=== PATIENT | male | born 1995 | race Caucasian/White ===

== ENCOUNTER 2021-06-25 14:44 | Observation (INO) | payer BC ==
[2021-06-25 15:17] LABS: Appearance CLOUDY (CLEAR); Bacteria RARE /HPF (NEGATIVE); Bilirubin NEGATIVE (NEGATIVE); Blood SMALL Ery/ul (0-5); Glucose NEGATIVE (NEGATIVE); Hyaline Casts 0-2 /LPF (0-2); Ketones SMALL (NEGATIVE); Leukocyte Esterase NEGATIVE (NEGATIVE); Mucus MODERATE /HPF (NEGATIVE); Nitrite NEGATIVE (NEGATIVE); Protein,Urine Dip 100 (Negative); Specific Gravity 1.016 (1.005-1.025); Sperm PRESENT /HPF (NEGATIVE); Urobilinogen NEGATIVE mg/dL (0-1); WBC 0-2 /HPF (0-5)
[2021-06-25 15:20] LABS: Absolute Neutrophil Ct (ANC) 10.67 (1.4-6.9); Basophil (Absolute #) 0.03 (0-0.4); Eosinophil % 0.5 % (0.00-5.0); Eosinophil (Absolute #) 0.06 (0-0.5); Hemoglobin 16.1 gm/dl (12.5-18.0); Lymphocyte (Absolute #) 0.59 (1.0-4.6); Mean Corpuscular Hemoglobin 30.1 pg (26-32); Mean Corpuscular Hgb Concent. 34.3 g/dl (32-36); Mean Platelet Volume 10.2 fl (7.5-11.0); Monocyte (Absolute #) 0.47 (0.0-1.3); Neutrophil % 90.2 % (36.0-66.0); Platelet Count 280 K/mm3 (150-450); Red Blood Count 5.34 M/mm3 (4.1-5.6); Red Cell Distribution Width 12.8 % (11.5-14.0); White Blood Count 11.8 K/mm3 (4.0-10.5)
[2021-06-25 15:28] LABS: ACETAMINOPHEN < 10 ug/ml (10-30); ALBUMIN 4.8 g/dL (3.5-5.0); ALKALINE PHOSPHATASE 98 U/L (38-126); ANION GAP 12.3 MEQ/L (5-15); BLOOD UREA NITROGEN 6 mg/dL (9-20); CHLORIDE 102 mmol/L (98-107); Calcium 9.6 mg/dL (8.4-10.2); Carbon Dioxide 28 mmol/L (22-30); Creatinine 1 0.71 mg/dL (0.66-1.25); EST GLOMERULAR FILTRATION RATE > 60.0 ML/MIN; ETHYL ALCOHOL < 10 mg/dL (0-10); Glucose 151 mg/dL (74-106); Potassium 4.2 mmol/L (3.5-5.1); SALICYLATE < 1.0 mg/dL (2-20); SGOT/AST 30 U/L (17-59); SGPT/ALT 26 U/L (0-50); SODIUM 138 mmol/L (137-145); Total Protein 7.7 g/dL (6.3-8.2)
[2021-06-25 15:37] LABS: Amphetamine,Urine NEGATIVE (NEGATIVE); Barbiturate,Urine NEGATIVE (NEGATIVE); Benzodiazepine,Urine NEGATIVE (NEGATIVE); Cocaine,Urine NEGATIVE (NEGATIVE); Methadone,Urine NEGATIVE (NEGATIVE); Opiate,Urine NEGATIVE (NEGATIVE); PCP,Urine NEGATIVE (NEGATIVE); THC,Urine POSITIVE (NEGATIVE)
--- NOTE | 2021-06-25 15:47 | ERPHSYRPT ---
- History of Present Illness Time Seen by Provider: 06/25/21 15:44 Source: patient, EMS, police Exam Limitations: no limitations Patient Subjective Stated Complaint: Overdose Triage Nursing Assessment: Patient brought into ED via EMS and transferred to bed per self. Patient alert to self and place, but unknown to date and time. Patient states the year is 2006 and unknown who is president. EMS states patient had went outside fine and came back inside stumbling around and not making any sense with speech. Patient has hx of substance abuse, but denies taking any drugs. Patient denies pain or discomfort. Patient denies suicidal or homicidal ideation. Patient has raised area to forehead. Patient also very tired. Physician History: EMS states patient had went outside fine and came back inside stumbling around and not making any sense with speech. Patient has hx of substance abuse, but denies taking any drugs. Patient denies pain or discomfort. Patient denies suicidal or homicidal ideation. Patient has raised area to forehead. Patient also very tired. Patient alert to self and place, but unknown to date and time. Patient states the year is 2006 and unknown who is president. Timing/Duration: today Severity of Symptoms-Max: mild Severity of Symptoms-Current: mild Associated Symptoms: denies symptoms Previous symptoms: no prior history Allergies/Adverse Reactions: No Known Drug Allergies Allergy (Verified 06/25/21 14:48) Home Medications: clonazePAM [Klonopin] 1 tab PO BID PRN PRN 06/25/21 [History] Hx Tetanus, Diphtheria Vaccination/Date Given: Yes Hx Influenza Vaccination/Date Given: No Hx Pneumococcal Vaccination/Date Given: No Immunizations Up to Date: Yes Travel Risk - International Travel Have you traveled outside of the country in past 3 weeks: No - Coronavirus Screening Are you exhibiting any of the following symptoms?: No Close contact with a COVID-19 positive Pt in past 14-21 Days: No - Vaccine Status Have you recieved a Covid-19 vaccination: Yes Synthetic Department Supervisor: Mercari - Vaccination Dates Date of 2cond Vaccination (if applicable): unknown - Past Medical History Pertinent Past Medical History: Yes Neurological History: No Pertinent History ENT History: No Pertinent History Cardiac History: No Pertinent History Respiratory History: No Pertinent History Endocrine Medical History: No Pertinent History Musculoskeletal History: Fractures GI Medical History: No Pertinent History History: No Pertinent History Psycho-Social History: No Pertinent History Male Reproductive Disorders: No Pertinent History Other Medical History: seasonal allergies - Past Surgical History Past Surgical History: Yes Neuro Surgical History: No Pertinent History Cardiac: No Pertinent History Respiratory: No Pertinent History Gastrointestinal: No Pertinent History Genitourinary: No Pertinent History Musculoskeletal: Orthopedic Surgery Male Surgical History: No Pertinent History Other Surgical History: left arm fracture with repair. revision to fracture repair and eventual removal or hardware - Social History Smoking Status: Never smoker Exposure to second hand smoke: No Drug Use: none Patient Lives Alone: No - Review of Systems Constitutional: No Fever, No Chills Eyes: No Symptoms Ears, Nose, & Throat: No Symptoms Respiratory: No Cough, No Dyspnea Cardiac: No Chest Pain, No Edema, No Syncope Abdominal/Gastrointestinal: No Abdominal Pain, No Nausea, No Vomiting, No Diarrhea Genitourinary Symptoms: No Dysuria Musculoskeletal: No Back Pain, No Neck Pain Skin: No Rash Neurological: No Dizziness, No Focal Weakness, No Sensory Changes Psychological: No Symptoms Endocrine: No Symptoms All Other Systems: Reviewed and Negative - Nursing Vital Signs Nursing Vital Signs: Initial Vital Signs Temperature 97 F 06/25/21 14:51 Pulse Rate 61 06/25/21 14:51 Respiratory Rate 18 06/25/21 14:51 Blood Pressure 118/63 06/25/21 14:51 O2 Sat by Pulse Oximetry 99 06/25/21 14:51 Pain Scale Pain Intensity 0 - Physical Exam General Appearance: no apparent distress Eyes, Ears, Nose, Throat Exam: normal ENT inspection, moist mucous membranes, other (bruise on left side forehead) Neck Exam: normal inspection, non-tender, supple Respiratory Exam: normal breath sounds, lungs clear, No respiratory distress Cardiovascular Exam: regular rate/rhythm, No edema Gastrointestinal/Abdominal Exam: soft, No tenderness, No distention Extremities Exam: normal inspection, normal range of motion, No evidence of injury, No edema Current Suicidality: denies suicide plan Neurological Exam: alert, customer success manager II-XII nml as tested, oriented x 3 Skin Exam: normal color, warm, dry, No rash SpO2: 99 - Course Nursing assessment & vital signs reviewed: Yes EKG Interpreted by Me: Sinus Jose Daniel (contusion left forehead) - CT Exams Head CT Interpretation: Tele-radiologist Report Ordered Tests: Active Orders 24 hr Category Date Time Status HEAD WITHOUT CONTRAST [CT] Stat Exams 06/25/21 15:03 Taken ACETAMINOPHEN Stat Lab 06/25/21 15:14 Completed CBC W DIFF Stat Lab 06/25/21 15:14 Completed CMP Stat Lab 06/25/21 15:14 Completed ETHYL ALCOHOL Stat Lab 06/25/21 15:14 Completed SALICYLATE Stat Lab 06/25/21 15:14 Completed UA W/RFX UR CULTURE Stat Lab 06/25/21 15:06 Completed Urine Triage Profile Stat Lab 06/25/21 15:06 Completed Medication Summary Discontinued Medications Generic Name Dose Route Start Last Admin Trade Name Dylan PRN Reason Stop Dose Admin Sodium Chloride 1,000 mls @ 999 mls/hr 06/25/21 15:57 06/25/21 16:00 Sodium Chloride 0.9% 1000 Ml IV 06/25/21 16:57 999 mls/hr .Q1H1M STA Administration Sodium Chloride Confirm 06/25/21 15:59 Sodium Chloride 0.9% 1000 Ml Administered 06/25/21 16:00 Dose 1,000 mls @ ud .ROUTE .STK-MED ONE Sodium Chloride 1,000 mls @ 999 mls/hr 06/25/21 16:11 06/25/21 17:19 Sodium Chloride 0.9% 1000 Ml IV 06/25/21 17:11 999 mls/hr .Q1H1M STA Administration Sodium Chloride Confirm 06/25/21 17:13 Sodium Chloride 0.9% 1000 Ml Administered 06/25/21 17:14 Dose 1,000 mls @ ud .ROUTE .STK-MED ONE Metoclopramide HCl 10 mg 06/25/21 17:07 06/25/21 17:19 Metoclopramide Hcl 10 Mg/2 Ml Vial IV 06/25/21 17:08 10 mg STAT ONE Administration Metoclopramide HCl Confirm 06/25/21 17:12 Metoclopramide Hcl 10 Mg/2 Ml Vial Administered 06/25/21 17:13 Dose 10 mg .ROUTE .STK-MED ONE Ondansetron HCl Confirm 06/25/21 15:51 Ondansetron Hcl 4 Mg/2 Ml Vial Administered 06/25/21 15:52 Dose 4 mg .ROUTE .STK-MED ONE Ondansetron HCl 4 mg 06/25/21 15:57 06/25/21 16:00 Ondansetron Hcl 4 Mg/2 Ml Vial IV 06/25/21 15:58 4 mg STAT ONE Administration Ondansetron HCl 4 mg 06/25/21 16:46 06/25/21 16:52 Ondansetron Hcl 4 Mg/2 Ml Vial IV 06/25/21 16:47 4 mg STAT ONE Administration Ondansetron HCl Confirm 06/25/21 16:48 Ondansetron Hcl 4 Mg/2 Ml Vial Administered 06/25/21 16:49 Dose 4 mg .ROUTE .[facility]rase[facility]rug[facility] ONE Prochlorperazine Edisylate 5 mg 06/25/21 17:07 06/25/21 17:18 Prochlorperazine Edisylate 10 Mg/2 Ml Vial IV 06/25/21 17:08 5 mg STAT ONE Administration Prochlorperazine Edisylate Confirm 06/25/21 17:12 Prochlorperazine Edisylate 10 Mg/2 Ml Vial Administered 06/25/21 17:13 Dose 10 mg .ROUTE .[employer]rug[facility] ONE Lab/Rad Data: Laboratory Result Diagrams 06/25/21 15:14 06/25/21 15:14 Laboratory Results 06/25/21 06/25/21 06/25/21 Range/Units 15:14 15:14 15:06 WBC 11.8 H (4.0-10.5) K/mm3 RBC 5.34 (4.1-5.6) M/mm3 Hgb 16.1 (12.5-18.0) gm/dl Hct 47.0 (42-50) % MCV 88.0 (78-100) fl MCH 30.1 (26-32) pg MCHC 34.3 (32-36) g/dl RDW 12.8 (11.5-14.0) % Plt Count 280 (150-450) K/mm3 MPV 10.2 (7.5-11.0) fl Gran % 90.2 H (36.0-66.0) % Eos # (Auto) 0.06 (0-0.5) Absolute Lymphs (auto) 0.59 L (1.0-4.6) Absolute Monos (auto) 0.47 (0.0-1.3) Lymphocytes % 5.0 L (24.0-44.0) % Monocytes % 4.0 (0.0-12.0) % Eosinophils % 0.5 (0.00-5.0) % Basophils % 0.3 (0.0-0.4) % Absolute Granulocytes 10.67 H (1.4-6.9) Basophils # 0.03 (0-0.4) Sodium 138 (137-145) mmol/L Potassium 4.2 (3.5-5.1) mmol/L Chloride 102 (98-107) mmol/L Carbon Dioxide 28 (22-30) mmol/L Anion Gap 12.3 (5-15) MEQ/L BUN 6 L (9-20) mg/dL Creatinine 0.71 (0.66-1.25) mg/dL Estimated GFR > 60.0 ML/MIN Glucose 151 H (74-106) mg/dL Calcium 9.6 (8.4-10.2) mg/dL Total Bilirubin 0.70 (0.2-1.3) mg/dL AST 30 (17-59) U/L ALT 26 (0-50) U/L Alkaline Phosphatase 98 (38-126) U/L Serum Total Protein 7.7 (6.3-8.2) g/dL Albumin 4.8 (3.5-5.0) g/dL Urine Color (YELLOW) Urine Appearance (CLEAR) Urine pH (5-6) Ur Specific [place] (1.005-1.025) Urine Protein (Negative) Urine Ketones (NEGATIVE) Urine Blood (0-5) Joradn/ul Urine Nitrite (NEGATIVE) Urine Bilirubin (NEGATIVE) Urine Urobilinogen (0-1) mg/dL Ur Leukocyte Esterase (NEGATIVE) Urine WBC (Auto) (0-5) /HPF Urine RBC (Auto) (0-2) /HPF U Hyaline Cast (Auto) (0-2) /LPF U Epithel Cells (Auto) (FEW) /HPF Urine Bacteria (Auto) (NEGATIVE) /HPF Urine Mucus (Auto) (NEGATIVE) /HPF Urine Sperm (Auto) (NEGATIVE) /HPF Urine Culture Reflexed (NO) Urine Glucose (NEGATIVE) mg/dL Salicylates < 1.0 L (2-20) mg/dL Urine Opiates Level NEGATIVE (NEGATIVE) Ur Methadone NEGATIVE (NEGATIVE) Acetaminophen < 10 L (10-30) ug/ml Urine Barbiturates NEGATIVE (NEGATIVE) Ur Phencyclidine (PCP) NEGATIVE (NEGATIVE) Urine Amphetamine NEGATIVE (NEGATIVE) U Benzodiazepine Level NEGATIVE (NEGATIVE) Urine Cocaine NEGATIVE (NEGATIVE) Urine Marijuana (THC) POSITIVE (NEGATIVE) Ethyl Alcohol < 10 (0-10) mg/dL Slides for Path Review YES 06/25/21 Range/Units 15:06 WBC (4.0-10.5) K/mm3 RBC (4.1-5.6) M/mm3 Hgb (12.5-18.0) gm/dl Hct (42-50) % MCV (78-100) fl MCH (26-32) pg MCHC (32-36) g/dl RDW (11.5-14.0) % Plt Count (150-450) K/mm3 MPV (7.5-11.0) fl Gran % (36.0-66.0) % Eos # (Auto) (0-0.5) Absolute Lymphs (auto) (1.0-4.6) Absolute Monos (auto) (0.0-1.3) Lymphocytes % (24.0-44.0) % Monocytes % (0.0-12.0) % Eosinophils % (0.00-5.0) % Basophils % (0.0-0.4) % Absolute Granulocytes (1.4-6.9) Basophils # (0-0.4) Sodium (137-145) mmol/L Potassium (3.5-5.1) mmol/L Chloride (98-107) mmol/L Carbon Dioxide (22-30) mmol/L Anion Gap (5-15) MEQ/L BUN (9-20) mg/dL Creatinine (0.66-1.25) mg/dL Estimated GFR ML/MIN Glucose (74-106) mg/dL Calcium (8.4-10.2) mg/dL Total Bilirubin (0.2-1.3) mg/dL AST (17-59) U/L ALT (0-50) U/L Alkaline Phosphatase (38-126) U/L Serum Total Protein (6.3-8.2) g/dL Albumin (3.5-5.0) g/dL Urine Color YELLOW (YELLOW) Urine Appearance CLOUDY (CLEAR) Urine pH 6.0 (5-6) Ur Specific [place] 1.016 (1.005-1.025) Urine Protein 100 (Negative) Urine Ketones SMALL (NEGATIVE) Urine Blood SMALL (0-5) Jordan/ul Urine Nitrite NEGATIVE (NEGATIVE) Urine Bilirubin NEGATIVE (NEGATIVE) Urine Urobilinogen NEGATIVE (0-1) mg/dL Ur Leukocyte Esterase NEGATIVE (NEGATIVE) Urine WBC (Auto) 0-2 (0-5) /HPF Urine RBC (Auto) 3-5 (0-2) /HPF U Hyaline Cast (Auto) 0-2 (0-2) /LPF U Epithel Cells (Auto) NONE (FEW) /HPF Urine Bacteria (Auto) RARE (NEGATIVE) /HPF Urine Mucus (Auto) MODERATE (NEGATIVE) /HPF Urine Sperm (Auto) PRESENT (NEGATIVE) /HPF Urine Culture Reflexed NO (NO) Urine Glucose NEGATIVE (NEGATIVE) mg/dL Salicylates (2-20) mg/dL Urine Opiates Level (NEGATIVE) Ur Methadone (NEGATIVE) Acetaminophen (10-30) ug/ml Urine Barbiturates (NEGATIVE) Ur Phencyclidine (PCP) (NEGATIVE) Urine Amphetamine (NEGATIVE) U Benzodiazepine Level (NEGATIVE) Urine Cocaine (NEGATIVE) Urine Marijuana (THC) (NEGATIVE) Ethyl Alcohol (0-10) mg/dL Slides for Path Review - Progress Progress: improved Counseled pt/family regarding: drug and/or alcohol abuse, lab results, diagnosis, need for follow-up, rad results, smoking cessation - Departure Departure Disposition: Observation Clinical Impression: Concussion Qualifiers: Encounter type: initial encounter Loss of consciousness presence/duration: without LOC Qualified Code(s): S06.0X0A - Concussion without loss of consciousness, initial encounter Head injury due to trauma Qualifiers: Encounter type: initial encounter Qualified Code(s): S09.90XA - Unspecified injury of head, initial encounter Condition: Fair Critical Care Time: Yes Critical Care Time(excluding separately billable procedures): Critical 30-74 mins Referrals: ONEIL SOTO [ACTIVE STAFF] - Follow Up with PCP/3 days Instructions: Concussion in Adults, Postconcussion Syndrome, Marijuana, Minor Head Injury (DC) Additional Instructions: Discharge/Care Plan ANTHONY GONG was seen on 06/25/21 in the Emergency Room. The patient was counseled regarding Diagnosis,Lab results, Imaging studies, need for follow up and when to return to the Emergency Room. Prescriptions given: Discharge Note I have spoken with the patient and/or caregivers. I have explained the patient's condition, diagnosis and treatment plan based on the information available to me at this time. I have answered the patient's and/or caregiver's questions and addressed any concerns. The patient and/or caregivers have as good understanding of the patient's diagnosis, condition and treatment plan as can be expected at this point. The vital signs have been stable. The patient's condition is stable and appropriate for discharge from the emergency department. The patient will pursue further outpatient evaluation with the primary care physician or other designated or consulting physician as outlined in the discharge instructions. The patient and/or caregivers are agreeable to this plan of care and follow-up instructions have been explained in detail. The patient and/or caregivers have received these instruction. The patient/and or caregivers are aware that any significant change in condition or worsening of symptoms should prompt an immediate return to this or the closest emergency department or call 911. ANTHONY GONG was seen on 06/25/21 n the Emergency Room. At that time you were treated for an emergent condition, during your visit Laboratory, Radiology and/or other procedures may have been ordered. It is very important that you follow-up with your Primary Care Physician TIMMY KUMAR within the next 24-48 hours to review your Emergency Room visit and the final results of testing that was ordered. Some test results such as Urine Cultures, Blood Cultures, and other cultures if ordered will not be finalized for 24-48 hours. If you do not have a Primary Care Provider please call the medical records department at [phone] to obtain a copy of your results or you may sign into our patient portal to obtain these results by visiting us @ [email or web address] and completing the following steps: 1. Click on the Patient Portal link 2. Click the Patient Self Enrollment Link to complete the enrollment form and entering your 3. Once the enrollment form is completed you will receive an email with a temporary ID and password at the email address you provided. 4. Next choose a user name and password. Your user name must be at least 4 characters long and your password must be at least 4 characters long. 5. Choose a security question from the list and provide your answer to the question. If you already have signed into the Health Portal you may access your Health Care Information 14/01 by the following steps: 1. Login to our website @ [email or web address] 2. Enter your original user name and password. FAQS [facility] Health Portal is an online tool that contains your Lab Results, Radiology Reports, Visit History, Discharge Instructions and Health Summary Lab and Radiology Results will not be available for 72 hours on the portal. The Portal is a secure site, passwords are encryted and URLs are re-written so they cannot be copied and pasted. You and authorized family members are the only ones who can access your Portal. Also there is a timeout feature that protects your information if you leave the Portal page open. If you have technical difficulty please use the Contact Us link on the page this will allow you to submit any questions you have regarding the Portal or you may contact the Medical Record Department at [phone]. Prescriptions: Ondansetron ODT 4 MG [Zofran Odt 4 mg] 4 mg PO Q6H PRN PRN #20 tablet PRN Reason: Nausea
[2021-06-25 15:49] LABS: Slide Review 1 YES
[2021-06-25] MEDS ORDERED: Zofran 4 MG/2 ML VIAL ONE ×2 (15:51→16:48)
[2021-06-25] MEDS ORDERED: Sodium Chloride 0.9% 1000 ML 1,000 ML IV STA ×2 (15:57→16:11)
[2021-06-25] MEDS ORDERED: Zofran 4 MG/2 ML VIAL IV ONE ×2 (15:57→16:46)
[2021-06-25] MEDS ORDERED: Sodium Chloride 0.9% 1000 ML 1,000 ML ONE ×2 (15:59→17:13)
[2021-06-25] MEDS ORDERED: Reglan 10 MG/2 ML IV ONE (17:07)
[2021-06-25] MEDS ORDERED: Compazine 10 MG/2 ML IV ONE (17:07)
[2021-06-25] MEDS ORDERED: Compazine 10 MG/2 ML ONE (17:12)
[2021-06-25] MEDS ORDERED: Reglan 10 MG/2 ML ONE (17:12)
[2021-06-25 18:12] LABS: INFLUENZA A NEGATIVE (NEGATIVE); INFLUENZA B NEGATIVE (NEGATIVE); RESPIRATORY SYNCTIAL VIRUS NEGATIVE (Negative); SARS-CoV-2 Xpert Express NEGATIVE (NEGATIVE)
[2021-06-25] MEDS ORDERED: TYLENOL 325 MG PO PRN (18:33)
[2021-06-25] MEDS ORDERED: Zofran 4 MG/2 ML VIAL IV PRN (18:33)
--- NOTE | 2021-06-25 19:38 | XRAY ---
Indication: Syncope. Confusion. Overdose. Multiple contiguous axial images obtained through the head without contrast. Comparison: None. Normal appearing brain parenchyma, ventricles, and bony calvarium. Visualized paranasal sinuses and mastoid air cells are clear. Impression: Normal CT head without contrast exam. Comment: Preliminary interpretation made by [facility]. No critical discrepancy.
[2021-06-25] MEDS: Pepcid 20 MG VIAL IV SCH (21:49)
[2021-06-25] MEDS: Dextrose 5%-Lr IV Solution 1000 ML 1,000 ML IV SCH (21:49)
[2021-06-26 05:05] LABS: Absolute Neutrophil Ct (ANC) 9.83 (1.4-6.9); Basophil (Absolute #) 0.01 (0-0.4); Eosinophil (Absolute #) 0 (0-0.5); Hematocrit 41.4 % (42-50); Hemoglobin 14.1 gm/dl (12.5-18.0); Lymphocyte (Absolute #) 0.54 (1.0-4.6); Lymphocytes % 4.9 % (24.0-44.0); Mean Cell Volume 88.3 fl (78-100); Mean Corpuscular Hemoglobin 30.1 pg (26-32); Mean Corpuscular Hgb Concent. 34.1 g/dl (32-36); Mean Platelet Volume 10.7 fl (7.5-11.0); Monocyte (Absolute #) 0.58 (0.0-1.3); Monocytes % 5.3 % (0.0-12.0); Neutrophil % 89.7 % (36.0-66.0); Platelet Count 270 K/mm3 (150-450); Red Blood Count 4.69 M/mm3 (4.1-5.6); Red Cell Distribution Width 12.8 % (11.5-14.0)
[2021-06-26 05:24] LABS: ANION GAP 13.8 MEQ/L (5-15); BLOOD UREA NITROGEN 5 mg/dL (9-20); CHLORIDE 101 mmol/L (98-107); Calcium 8.7 mg/dL (8.4-10.2); Carbon Dioxide 24 mmol/L (22-30); Creatinine 1 0.61 mg/dL (0.66-1.25); EST GLOMERULAR FILTRATION RATE > 60.0 ML/MIN; Glucose 115 mg/dL (74-106); Potassium 3.7 mmol/L (3.5-5.1); SODIUM 135 mmol/L (137-145)
[2021-06-26 06:49] LABS: Slide Review 1 YES
[2021-06-26] MEDS: Pepcid 20 MG VIAL IV SCH ×2 (08:55→20:20)
[2021-06-26] MEDS ORDERED: ZOFRAN ODT 4 MG PO PRN (12:23)
[2021-06-26] MEDS: PRISTIQ ER PO SCH (12:47)
[2021-06-26] MEDS: Dextrose 5%-Lr IV Solution 1000 ML 1,000 ML IV SCH (18:18)
--- NOTE | 2021-06-26 18:55 | PCM.HP ---
History of Present Illness - Chief Complaint Chief Complaint: head injury and confusion for 2-3 hours History of Present Illness: is a 25 year old male EMS states patient had went outside fine and came back inside stumbling around and not making any sense with speech. Patient has hx of substance abuse, but denies taking any drugs. Patient denies pain or discomfort. Patient denies suicidal or homicidal ideation. Patient has raised area to forehead. Patient also very tired. Patient alert to self and place, but unknown to date and time. Patient states the year is 2006 and unknown who is president. Timing/Duration: today Severity of Symptoms-Max: mild Severity of Symptoms-Current: mild Associated Symptoms: denies symptoms Previous symptoms: no prior history. Patient brought into ED via EMS and transferred to bed per self. Patient alert to self and place, but unknown to date and time. Patient states the year is 2006 and unknown who is president. EMS states patient had went outside fine and came back inside stumbling around and not making any sense with speech. Patient has hx of substance abuse, but denies taking any drugs. Patient denies pain or discomfort. Patient denies suicidal or homicidal ideation. Patient has raised area to forehead. Patient also very tired. - Review of Systems Constitutional: Lethargy, No Fever, No Chills Eyes: No Symptoms Ears, Nose, & Throat: No Symptoms Respiratory: No Cough, No Short Of Breath Cardiac: No Chest Pain, No Edema, No Syncope Abdominal/Gastrointestinal: No Abdominal Pain, No Nausea, No Vomiting, No Diarrhea Genitourinary Symptoms: No Dysuria Musculoskeletal: No Back Pain, No Neck Pain Skin: No Rash Neurological: Dizziness, Headache, Lethargy, No Focal Weakness, No Sensory Changes Psychological: No Symptoms Endocrine: No Symptoms Hematologic/Lymphatic: No Symptoms Immunological/Allergic: No Symptoms Medications & Allergies Home Medications: Home Medication List Desvenlafaxine [Desvenlafaxine ER] 50 mg PO DAILY 06/25/21 [History Confirmed 06/25/21] Ondansetron ODT 4 MG [Zofran Odt 4 mg] 4 mg PO Q6H PRN PRN #20 tablet 06/25/21 [Rx] Aripiprazole 10 mg [Abilify 10 MG] 5 mg PO HS #21 tablet 06/26/21 [Rx] Allergies/Adverse Reactions: Allergies Allergy/AdvReac Type Severity Reaction Status Date / Time No Known Drug Allergies Allergy Verified 06/25/21 14:48 - Past Medical History Past Medical History: Yes Neurological History: No Pertinent History ENT History: No Pertinent History Cardiac History: No Pertinent History Respiratory History: No Pertinent History Endocrine Medical History: No Pertinent History Musculoskelatal History: No Pertinent History GI Medical History: No Pertinent History History: No Pertinent History Pyscho-Social History: Anxiety, Other Male Reproductive Disorders: No Pertinent History Comment: seasonal allergies - Past Surgical History Past Surgical History: Yes Neuro Surgical History: No Pertinent History Cardiac History: No Pertinent History Respiratory Surgery: No Pertinent History GI Surgical History: No Pertinent History Genitourinary Surgical Hx: No Pertinent History Musculskeletal Surgical Hx: Other Male Surgical History: No Pertinent History Other Surgical History: multiple left arm surgeries after break - Social History Smoking Status: Current some day smoker Exposure to second hand smoke: No Drug Use: marijuana - Physical Exam Vital Signs: Vital Signs - 24 hr Temp Pulse Resp BP Pulse Ox 06/26/21 16:00 99.5 F 46 L 23 145/70 95 06/26/21 12:00 98.9 F 46 L 19 116/56 96 06/26/21 08:00 98.0 F 70 19 136/64 95 06/26/21 04:00 98.5 F 47 L 18 137/65 98 06/26/21 00:00 96.9 F 44 L 16 143/62 98 06/25/21 20:00 97.4 F 48 L 17 118/58 98 General Appearance: no apparent distress, mild distress, alert Neurologic Exam: alert, oriented x 3, cooperative, normal mood/affect, nml cerebellar function, nml station & gait, sensation nml, No motor deficits Eye Exam: PERRL/EOMI, eyes nml inspection Ears, Nose, Throat Exam: normal ENT inspection, TMs normal, pharynx normal, moist mucous membranes Neck Exam: normal inspection, non-tender, supple, full range of motion Respiratory Exam: normal breath sounds, lungs clear, No respiratory distress Cardiovascular Exam: regular rate/rhythm, normal heart sounds, normal peripheral pulses Gastrointestinal/Abdomen Exam: soft, normal bowel sounds, No tenderness, No mass Back Exam: normal inspection, normal range of motion, No CVA tenderness, No vertebral tenderness Extremity Exam: normal inspection, normal range of motion, pelvis stable Skin Exam: normal color, warm, dry, No rash Lymphatic Exam: No adenopathy Results - Labs Lab/Micro Results: Lab Results-Last 24 Hours 06/26/21 06/26/21 06/26/21 Range/Units 04:00 04:00 04:00 WBC 11.0 H (4.0-10.5) K/mm3 RBC 4.69 (4.1-5.6) M/mm3 Hgb 14.1 (12.5-18.0) gm/dl Hct 41.4 L (42-50) % MCV 88.3 (78-100) fl MCH 30.1 (26-32) pg MCHC 34.1 (32-36) g/dl RDW 12.8 (11.5-14.0) % Plt Count 270 (150-450) K/mm3 MPV 10.7 (7.5-11.0) fl Gran % 89.7 H (36.0-66.0) % Eos # (Auto) 0 (0-0.5) Absolute Lymphs (auto) 0.54 L (1.0-4.6) Absolute Monos (auto) 0.58 (0.0-1.3) Lymphocytes % 4.9 L (24.0-44.0) % Monocytes % 5.3 (0.0-12.0) % Eosinophils % 0.0 (0.00-5.0) % Basophils % 0.1 (0.0-0.4) % Absolute Granulocytes 9.83 H (1.4-6.9) Basophils # 0.01 (0-0.4) Sodium 135 L (137-145) mmol/L Potassium 3.7 (3.5-5.1) mmol/L Chloride 101 (98-107) mmol/L Carbon Dioxide 24 (22-30) mmol/L Anion Gap 13.8 (5-15) MEQ/L BUN 5 L (9-20) mg/dL Creatinine 0.61 L (0.66-1.25) mg/dL Estimated GFR > 60.0 ML/MIN Glucose 115 H (74-106) mg/dL Hemoglobin A1c 4.62 (4.5-6.0) % Calcium 8.7 (8.4-10.2) mg/dL Troponin I (0.000-0.034) ng/mL Slides for Path Review YES 06/26/21 Range/Units 05:30 WBC (4.0-10.5) K/mm3 RBC (4.1-5.6) M/mm3 Hgb (12.5-18.0) gm/dl Hct (42-50) % MCV (78-100) fl MCH (26-32) pg MCHC (32-36) g/dl RDW (11.5-14.0) % Plt Count (150-450) K/mm3 MPV (7.5-11.0) fl Gran % (36.0-66.0) % Eos # (Auto) (0-0.5) Absolute Lymphs (auto) (1.0-4.6) Absolute Monos (auto) (0.0-1.3) Lymphocytes % (24.0-44.0) % Monocytes % (0.0-12.0) % Eosinophils % (0.00-5.0) % Basophils % (0.0-0.4) % Absolute Granulocytes (1.4-6.9) Basophils # (0-0.4) Sodium (137-145) mmol/L Potassium (3.5-5.1) mmol/L Chloride (98-107) mmol/L Carbon Dioxide (22-30) mmol/L Anion Gap (5-15) MEQ/L BUN (9-20) mg/dL Creatinine (0.66-1.25) mg/dL Estimated GFR ML/MIN Glucose (74-106) mg/dL Hemoglobin A1c (4.5-6.0) % Calcium (8.4-10.2) mg/dL Troponin I < 0.012 (0.000-0.034) ng/mL Slides for Path Review - Radiology Impressions Radiology Exams & Impressions: Radiology Procedures Category Date Time Status HEAD WITHOUT CONTRAST [CT] Stat Exams 06/25/21 15:03 Completed MRI BRAIN W & W/O CONTRAST [MRI] Urgent Exams 06/27/21 00:[address]/HEAD WITHOUT CONTRAST Indication: Syncope. Confusion. Overdose. Multiple contiguous axial images obtained through the head without contrast. Comparison: None. Normal appearing brain parenchyma, ventricles, and bony calvarium. Visualized paranasal sinuses and mastoid air cells are clear. Impression: Normal CT head without contrast exam. Assessment/Plan (1) Concussion Current Visit: Yes Status: Acute Qualifiers: Encounter type: initial encounter Loss of consciousness presence/duration: without LOC Qualified Code(s): S06.0X0A - Concussion without loss of consciousness, initial encounter Assessment & Plan: Chief Complaint Diagnosis head injury Allergies Allergy/AdvReac Type Severity Reaction Status Date / Time No Known Drug Allergies Allergy Verified 06/25/21 14:48 Vital Signs (Last 24 hours) Temp Pulse Resp BP Pulse Ox 06/26/21 16:00 99.5 F 46 L 23 145/70 95 06/26/21 12:00 98.9 F 46 L 19 116/56 96 06/26/21 08:00 98.0 F 70 19 136/64 95 06/26/21 04:00 98.5 F 47 L 18 137/65 98 06/26/21 00:00 96.9 F 44 L 16 143/62 98 06/25/21 20:00 97.4 F 48 L 17 118/58 98 Home Medications Medication Instructions Recorded Confirmed Last Taken Type Desvenlafaxine [Desvenlafaxine ER] 50 mg PO DAILY 06/25/21 06/25/21 06/24/21 History Ondansetron ODT 4 MG [Zofran 4 mg PO Q6H PRN PRN #20 tablet 06/25/21 Unknown Rx Odt 4 mg] Aripiprazole 10 mg [Abilify 10 5 mg PO HS #21 tablet 06/26/21 Unknown Rx MG] Current Medications Generic Name Dose Route Start Last Admin Trade Name Freq PRN Reason Stop Dose Admin Acetaminophen 650 mg 06/25/21 18:33 06/26/21 08:55 Acetaminophen 325 Mg Tablet PO 07/25/21 18:32 650 mg Q4H PRN PRN Administration PAIN AND/OR FEVER Aripiprazole 5 mg 06/26/21 22:00 Aripiprazole 10 Mg Tablet PO 07/26/21 21:59 HS SOFIA Desvenlafaxine Succinate 50 mg 06/26/21 13:00 06/26/21 12:47 Desvenlafaxine Succinate 50 Mg Tab.Er.24h PO 07/26/21 12:59 50 mg DAILY SOFIA Administration Famotidine 20 mg 06/25/21 22:00 06/26/21 08:55 Famotidine 20 Mg/1 Vial IV 07/25/21 21:59 20 mg Q12HT SOFIA Administration Dextrose/Lactated Ringer's 1,000 mls @ 100 mls/hr 06/25/21 18:33 06/26/21 18:18 Dextrose 5%-Lr Iv Solution 1000 Ml IV 07/25/21 18:32 100 mls/hr .Q10H SOFIA Administration Nicotine 1 each 06/26/21 19:00 Nicotine Patch 7mg/24hr TD 07/26/21 18:59 DAILY SOFIA Ondansetron HCl 4 mg 06/25/21 18:33 06/26/21 17:57 Ondansetron Hcl 4 Mg/2 Ml Vial IV 07/25/21 18:32 4 mg Q6H PRN PRN Administration NAUSEA/VOMITING Ondansetron HCl 4 mg 06/26/21 12:23 Zofran 4 Mg/Udtablet Orally Disintegrating PO 07/26/21 12:22 Q6H PRN PRN NAUSEA Discontinued Medications Generic Name Dose Route Start Last Admin Trade Name Freq PRN Reason Stop Dose Admin Sodium Chloride 1,000 mls @ 999 mls/hr 06/25/21 15:57 06/25/21 18:25 Sodium Chloride 0.9% 1000 Ml IV 06/25/21 16:57 Infused .Q1H1M STA Infusion Sodium Chloride Confirm 06/25/21 15:59 Sodium Chloride 0.9% 1000 Ml Administered 06/25/21 16:00 Dose 1,000 mls @ ud .ROUTE .STK-MED ONE Sodium Chloride 1,000 mls @ 999 mls/hr 06/25/21 16:11 06/25/21 18:25 Sodium Chloride 0.9% 1000 Ml IV 06/25/21 17:11 Infused .Q1H1M STA Infusion Sodium Chloride Confirm 06/25/21 17:13 Sodium Chloride 0.9% 1000 Ml Administered 06/25/21 17:14 Dose 1,000 mls @ ud .ROUTE .STK-MED ONE Metoclopramide HCl 10 mg 06/25/21 17:07 06/25/21 17:19 Metoclopramide Hcl 10 Mg/2 Ml Vial IV 06/25/21 17:08 10 mg STAT ONE Administration Metoclopramide HCl Confirm 06/25/21 17:12 Metoclopramide Hcl 10 Mg/2 Ml Vial Administered 06/25/21 17:13 Dose 10 mg .ROUTE .STK-MED ONE Ondansetron HCl Confirm 06/25/21 15:51 Ondansetron Hcl 4 Mg/2 Ml Vial Administered 06/25/21 15:52 Dose 4 mg .ROUTE .STK-MED ONE Ondansetron HCl 4 mg 06/25/21 15:57 06/25/21 16:00 Ondansetron Hcl 4 Mg/2 Ml Vial IV 06/25/21 15:58 4 mg STAT ONE Administration Ondansetron HCl 4 mg 06/25/21 16:46 06/25/21 16:52 Ondansetron Hcl 4 Mg/2 Ml Vial IV 06/25/21 16:47 4 mg STAT ONE Administration Ondansetron HCl Confirm 06/25/21 16:48 Ondansetron Hcl 4 Mg/2 Ml Vial Administered 06/25/21 16:49 Dose 4 mg .ROUTE .STK-MED ONE Prochlorperazine Edisylate 5 mg 06/25/21 17:07 06/25/21 17:18 Prochlorperazine Edisylate 10 Mg/2 Ml Vial IV 06/25/21 17:08 5 mg STAT ONE Administration Prochlorperazine Edisylate Confirm 06/25/21 17:12 Prochlorperazine Edisylate 10 Mg/2 Ml Vial Administered 06/25/21 17:13 Dose 10 mg .ROUTE .STK-MED ONE Intake & Output (Last 24 hours) 06/24/21 06/25/21 06/26/21 06/27/21 11:59 11:59 11:59 11:59 Intake Total 1487 580 Output Total 200 Balance 1487 380 Weight 90.718 kg Laboratory Results (Last 24 hours) 06/26/21 06/26/21 06/26/21 05:30 04:00 04:00 WBC RBC Hgb Hct MCV MCH MCHC RDW Plt Count MPV Gran % Eos # (Auto) Absolute Lymphs (auto) Absolute Monos (auto) Lymphocytes % Monocytes % Eosinophils % Basophils % Absolute Granulocytes Basophils # Sodium 135 L Potassium 3.7 Chloride 101 Carbon Dioxide 24 Anion Gap 13.8 BUN 5 L Creatinine 0.61 L Estimated GFR > 60.0 Glucose 115 H Hemoglobin A1c 4.62 Calcium 8.7 Troponin I < 0.012 Slides for Path Review 06/26/21 04:00 WBC 11.0 H RBC 4.69 Hgb 14.1 Hct 41.4 L MCV 88.3 MCH 30.1 MCHC 34.1 RDW 12.8 Plt Count 270 MPV 10.7 Gran % 89.7 H Eos # (Auto) 0 Absolute Lymphs (auto) 0.54 L Absolute Monos (auto) 0.58 Lymphocytes % 4.9 L Monocytes % 5.3 Eosinophils % 0.0 Basophils % 0.1 Absolute Granulocytes 9.83 H Basophils # 0.01 Sodium Potassium Chloride Carbon Dioxide Anion Gap BUN Creatinine Estimated GFR Glucose Hemoglobin A1c Calcium Troponin I Slides for Path Review YES Orders (Last 24 hours) Category Date Time Status Code Status Order ROUTINE Care 06/25/21 18:33 Active Fall Protocol Q1H Care 06/25/21 18:33 Active IV Care Q6H Care 06/25/21 18:33 Active Miscellaneous Nursing Order ROUTINE Care 06/26/21 08:50 Active Neuro Checks Q4H Care 06/25/21 18:[address] in Observation ROUTINE Care 06/25/21 18:33 Active Manager Enrollment/Discharge Plan ROUTINE Cons 06/25/21 18:48 Active MRI BRAIN W & W/O CONTRAST [MRI] Urgent Exams 06/27/21 00:00 Ordered BMP AM.LAB Lab 06/26/21 04:00 Completed CBC W DIFF AM.LAB Lab 06/26/21 04:00 Completed HEMOGLOBIN A1C Urgent Lab 06/26/21 04:00 Completed TROPONIN Stat Lab 06/26/21 05:30 Completed Acetaminophen 325 mg [Tylenol 325 mg] Med 06/25/21 18:33 Active 650 mg PO Q4H PRN PRN Aripiprazole 10 mg [Abilify 10 MG] Med 06/26/21 22:00 Active 5 mg PO HS Desvenlafaxine Succinate [Pristiq ER] Med 06/26/21 13:00 Active 50 mg PO DAILY Dextrose 5%-Lr 1000 ml [Dextrose 5%-Lr IV Solution 1000 Med 06/25/21 18:33 Active ML] 1,000 ml IV 100 mls/hr Famotidine 20 mg Vial [Pepcid 20 MG VIAL] Med 06/25/21 22:00 Active 20 mg IV Q12HT Nicotine [Nicotine Patch 7Mg] Med 06/26/21 19:00 Ordered 1 each TD DAILY Ondansetron HCl 4 mg/2 ml [Zofran 4 MG/2 ML VIAL] Med 06/25/21 18:33 Active 4 mg IV Q6H PRN PRN Ondansetron ODT 4 MG [Zofran Odt 4 mg] Med 06/26/21 12:23 Active 4 mg PO Q6H PRN PRN EKG ROUTINE RT 06/26/21 11:44 Completed Patient Care Notes (Last 24 hours) 06/26/21 14:50 Nursing Note by Sonia Garcia DR. WANTS PATIENT TO SEEK SERVICES FROM [facility][1]. I GAVE THE MOT HER NAM EAND PHONE NUMBER OF LINK THAT WILL GET HIM SCHEDULED FOR OUTPATIENT SERVICES. OPTION 2 Initialized on 06/26/21 14:50 - END OF NOTE Code(s): S06.0X9A - CONCUSSION W LOSS OF CONSCIOUSNESS OF UNSP DURATION, INIT (2) Head injury due to trauma Current Visit: Yes Status: Acute Qualifiers: Encounter type: initial encounter Qualified Code(s): S09.90XA - Unspecified injury of head, initial encounter Code(s): S09.90XA - UNSPECIFIED INJURY OF HEAD, INITIAL ENCOUNTER (3) Withdrawal from benzodiazepine Current Visit: Yes Status: Acute Code(s): F13.239 - SEDATV/HYP/ANXIOLYTC DEPENDENCE W WITHDRAWAL, UNSP (4) Withdrawal from nicotine Current Visit: Yes Status: Acute Code(s): F17.203 - NICOTINE DEPENDENCE UNSPECIFIED, WITH WITHDRAWAL
[2021-06-26] MEDS: NICOTINE PATCH 7MG TD SCH (20:20)
[2021-06-26] MEDS ORDERED: Abilify 10 MG PO SCH (22:00)
[2021-06-27] MEDS: Dextrose 5%-Lr IV Solution 1000 ML 1,000 ML IV SCH (04:01)
[2021-06-27 07:03] LABS: Absolute Neutrophil Ct (ANC) 8.44 (1.4-6.9); Basophil (Absolute #) 0.04 (0-0.4); Eosinophil % 0.4 % (0.00-5.0); Eosinophil (Absolute #) 0.04 (0-0.5); Hematocrit 44.3 % (42-50); Hemoglobin 15.1 gm/dl (12.5-18.0); Lymphocyte (Absolute #) 1.03 (1.0-4.6); Lymphocytes % 9.9 % (24.0-44.0); Mean Cell Volume 88.2 fl (78-100); Mean Corpuscular Hemoglobin 30.1 pg (26-32); Mean Corpuscular Hgb Concent. 34.1 g/dl (32-36); Mean Platelet Volume 10.5 fl (7.5-11.0); Monocyte (Absolute #) 0.82 (0.0-1.3); Monocytes % 7.9 % (0.0-12.0); Neutrophil % 81.4 % (36.0-66.0); Platelet Count 263 K/mm3 (150-450); Red Blood Count 5.02 M/mm3 (4.1-5.6); White Blood Count 10.4 K/mm3 (4.0-10.5)
[2021-06-27 07:32] LABS: ANION GAP 14.5 MEQ/L (5-15); BLOOD UREA NITROGEN 4 mg/dL (9-20); CHLORIDE 99 mmol/L (98-107); Calcium 9.4 mg/dL (8.4-10.2); Carbon Dioxide 26 mmol/L (22-30); Creatinine 1 0.55 mg/dL (0.66-1.25); EST GLOMERULAR FILTRATION RATE > 60.0 ML/MIN; Glucose 109 mg/dL (74-106); Potassium 3.8 mmol/L (3.5-5.1); SODIUM 136 mmol/L (137-145)
[2021-06-27] MEDS ORDERED: Catapres 0.1 MG PO PRN (09:34)
[2021-06-27] MEDS ORDERED: NON-FORMULARY ITEM (Desvenlafaxine [Desvenlafaxine Er] 50 MG Tab.Er.24h) PO SCH (10:00)
--- NOTE | 2021-06-27 10:13 | XRAY ---
Indication: Head injury. Negative CT head. Sagittal, coronal, and axial MRI brain performed using pre and post T1, T2, FLAIR, diffusion, and ADC sequences. 15 cc Dotarem contrast used. Comparison: None Ventriculosulcal pattern appears symmetric. No acute intracranial hemorrhage, abnormal extra-axial fluid collection, or mass effect. Diffusion images are negative for restricted signal. Following gadolinium, there is no abnormal enhancing intra or extra-axial mass. Fourth ventricle is midline without hydrocephalus. 7/8 cranial nerve complex bilaterally symmetric. Normal flow void signal within the major intracerebral circulation. Normal appearing craniocervical junction and sella turcica. Visualized paranasal sinuses are clear. Impression: Negative MRI brain with contrast exam.
[2021-06-27] MEDS: PRISTIQ ER PO SCH (10:22)
[2021-06-27] MEDS: Pepcid 20 MG VIAL IV SCH (10:26)
[2021-06-27] MEDS: NICOTINE PATCH 7MG TD SCH (12:38)
[2021-06-27 13:54] VITALS: BP 128/67; PULSE 51; O2SAT 97
--- NOTE | 2021-06-28 06:10 | PCM.DS ---
Discharge Summary Date of Admission: 06/25/21 18:27 Admitting Physician: YOUSUF PENNY Primary Care Provider: NO FAMILY DOCTOR Allergies Allergies No Known Drug Allergies Allergy (Verified 06/25/21 14:48) Hospital Summary - Hospital Course Hospital Course: Late entry for 06/27/21 0815. Pt is a 25 yo male with depression (may have bipolar) and hx polysubstance abuse, pt of Dr. Penny, who was admitted through ER with disorientation and a fall in which he hit his head. He was withdrawing from benzodiazepines and nicotine as well. He vomited x 2 in the ER and on the med surg floor so was kept an additional day. His UDS was positive for THC. CT head negative. Pt remembers being in the garage but nothing after he fell. Pt will have MRI and if it is negative will be discharged to home. He will f/u outpatient with [facility]. Sending pt home on clonidine 0.1mg po BID prn for symptoms of withdrawal. F/u with Dr. Penny. - Vitals & Intake/Output Vital Signs: Vital Signs Temperature 97.9 F 06/27/21 12:00 Pulse Rate 51 L 06/27/21 12:00 Respiratory Rate 19 06/27/21 08:00 Blood Pressure 128/67 06/27/21 12:00 O2 Sat by Pulse Oximetry 97 06/27/21 12:00 Intake & Output: Intake & Output 06/25/21 06/26/21 06/27/21 06/28/21 11:59 11:59 11:59 11:59 Intake Total 1487 2984 Output Total 200 Balance 1487 2784 Weight 90.718 kg - Lab Result Diagrams: 06/27/21 06:45 06/27/21 06:45 Lab Results-Last 24 Hrs: Lab Results-Last 24 Hours 06/27/21 06/27/21 Range/Units 06:45 06:45 WBC 10.4 (4.0-10.5) K/mm3 RBC 5.02 (4.1-5.6) M/mm3 Hgb 15.1 (12.5-18.0) gm/dl Hct 44.3 (42-50) % MCV 88.2 (78-100) fl MCH 30.1 (26-32) pg MCHC 34.1 (32-36) g/dl RDW 13.0 (11.5-14.0) % Plt Count 263 (150-450) K/mm3 MPV 10.5 (7.5-11.0) fl Gran % 81.4 H (36.0-66.0) % Eos # (Auto) 0.04 (0-0.5) Absolute Lymphs (auto) 1.03 (1.0-4.6) Absolute Monos (auto) 0.82 (0.0-1.3) Lymphocytes % 9.9 L (24.0-44.0) % Monocytes % 7.9 (0.0-12.0) % Eosinophils % 0.4 (0.00-5.0) % Basophils % 0.4 (0.0-0.4) % Absolute Granulocytes 8.44 H (1.4-6.9) Basophils # 0.04 (0-0.4) Sodium 136 L (137-145) mmol/L Potassium 3.8 (3.5-5.1) mmol/L Chloride 99 (98-107) mmol/L Carbon Dioxide 26 (22-30) mmol/L Anion Gap 14.5 (5-15) MEQ/L BUN 4 L (9-20) mg/dL Creatinine 0.55 L (0.66-1.25) mg/dL Estimated GFR > 60.0 ML/MIN Glucose 109 H (74-106) mg/dL Calcium 9.4 (8.4-10.2) mg/dL - Radiology Exams Ordered Rad Exams-Entire Visit: Radiology Procedures Category Date Time Status MRI BRAIN W & W/O CONTRAST [MRI] Urgent Exams 06/27/21 09:24 Completed - Procedures and Test Procedures and Tests throughout Hospitalization: Therapy Orders & Screens 06/26/21 11:44 EKG ROUTINE Comment: Diagnosis: head injury Discharge Exam General Appearance: no apparent distress, alert Neurologic Exam: oriented x 3, cooperative, jerker II-XII nml as tested, normal mood/affect, 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 Vomiting has resolved. home after MRI today. Code(s): S06.0X9A - CONCUSSION W LOSS OF CONSCIOUSNESS OF UNSP DURATION, INIT (2) Withdrawal from benzodiazepine Status: Acute Assessment & Plan: clonidine for sx. Code(s): F13.239 - SEDATV/HYP/ANXIOLYTC DEPENDENCE W WITHDRAWAL, UNSP (3) Withdrawal from nicotine Status: Acute Code(s): F17.203 - NICOTINE DEPENDENCE UNSPECIFIED, WITH [place] THDRAWAL - Discharge Disposition: Home, Self-Care Condition: Fair Prescriptions: New Ondansetron ODT 4 MG [Zofran Odt 4 mg] 4 mg PO Q6H PRN PRN #20 tablet PRN Reason: Nausea Aripiprazole 10 mg [Abilify 10 MG] 5 mg PO HS #21 tablet Clonidine HCl 0.1 mg [Catapres 0.1 MG] 0.1 mg PO BIDPRN PRN #30 tablet PRN Reason: FIDGETY Continue Desvenlafaxine [Desvenlafaxine ER] 50 mg PO DAILY Instructions: Concussion, Adult (DC), Aripiprazole, Clonidine Follow up with: MEREDITH SCHNEIDER NP [NON-STAFF PHY W/O PRIVILEGES] - 06/29/21 1:00 pm
== END 2021-06-27 12:40 | disposition home or self-care (01) ==
LOC: ED 14:44 → MED SURG 18:27
PROVIDERS: ADMIT General Practice; ATTEND General Practice
DX: S06.0X9A Concussion with loss of consciousness of unspecified duration, initial encounter (principal); F13.239 Sedative, hypnotic or anxiolytic dependence with withdrawal, unspecified; F17.203 Nicotine dependence unspecified, with withdrawal; R41.0 Disorientation, unspecified; S00.83XA Contusion of other part of head, initial encounter; R53.83 Other fatigue; Z20.828 Contact with and (suspected) exposure to other viral communicable diseases
CPT/HCPCS: 0241U; 36415; 70450; 70553; 80048; 80053; 80307; 81001; 83036; 84484; 85025; 93005; 96360; 96361; 96374; 96375; 96376; 99285; 99291; G0378; J2405; A9270-GY; G0480

== ENCOUNTER 2021-12-08 12:21 | Emergency (ER) | payer BC ==
[2021-12-08] MEDS ORDERED: TORAdol 30 mg Injection IV ONE (12:39)
[2021-12-08] MEDS ORDERED: Sodium Chloride 0.9% 1000 ML 1,000 ML IV STA ×2 (12:39→14:06)
[2021-12-08] MEDS ORDERED: Zofran 4 MG/2 ML VIAL IV ONE (12:39)
[2021-12-08] MEDS ORDERED: TORAdol 30 mg Injection ONE (12:47)
[2021-12-08] MEDS ORDERED: Sodium Chloride 0.9% 1000 ML 1,000 ML ONE ×2 (12:47→14:13)
[2021-12-08] MEDS ORDERED: Zofran 4 MG/2 ML VIAL ONE (12:47)
[2021-12-08 13:04] LABS: Absolute Neutrophil Ct (ANC) 8.96 x10^3/uL (1.4-6.9); Basophil (Absolute #) 0.05 x10^3/uL (0-0.4); Eosinophil % 0.9 % (0.00-5.0); Eosinophil (Absolute #) 0.09 x10^3/uL (0-0.5); Hematocrit 45.1 % (42-50); Hemoglobin 16.2 g/dL (12.5-18.0); Lymphocyte (Absolute #) 0.74 x10^3/uL (1.0-4.6); Lymphocytes % 7.2 % (24.0-44.0); Mean Cell Volume 83.4 fL (78-100); Mean Corpuscular Hemoglobin 29.9 pg (26-32); Mean Corpuscular Hgb Concent. 35.9 g/dL (32-36); Mean Platelet Volume 10.3 fL (7.5-11.0); Monocyte (Absolute #) 0.46 x10^3/uL (0.0-1.3); Monocytes % 4.5 % (0.0-12.0); Neutrophil % 86.6 % (36.0-66.0); Platelet Count 321 x10^3/uL (150-450); Red Blood Count 5.41 x10^6/uL (4.1-5.6); Red Cell Distribution Width 12.3 % (11.5-14.0); White Blood Count 10.3 x10^3/uL (4.0-10.5)
[2021-12-08 13:09] LABS: Appearance SLIGHTLY CLOUDY (CLEAR); Bilirubin SMALL (NEGATIVE); Glucose NEGATIVE (NEGATIVE); Ketones MODERATE-40 (NEGATIVE); Mucus SLIGHT /HPF (NEGATIVE)
--- NOTE | 2021-12-08 13:09 | ERPHSYRPT ---
- History of Present Illness Time Seen by Provider: 12/08/21 12:31 Historian: patient Exam Limitations: no limitations Patient Subjective Stated Complaint: Pt began vomiting this morning and having abdominal pain, body aches Triage Nursing Assessment: Pt brought to the ER by his dad, hypertensive, bradycardic, rates abdominal pain as 3-4/10, dry heaving, pain with palpatation to the left quadrants of abdomen, last intake was last night, last bowel movement was last night, unsteady on his feet, Physician History: 26 years old male presented to the ER with chief complaint of left-sided abdominal pain with multiple episodes of nonprojectile, nonbilious vomiting without hematemesis since this morning. Pain is mild to moderate intensity sharp cramping, intermittent, aggravated with vomiting and palpation and does report having an episode of loose stool. Denies any sick contact. Having generalized weakness fatigue tiredness and feeling of being dehydrated. Also having generalized body aches Timing/Duration: today, intermittent, worse Activities at Onset: sleep Quality: cramping, sharpness Abdominal Pain Onset Location: LUQ, LLQ, epigastric, flank Pain Radiation: no radiation Severity of Pain-Max: moderate Severity of Pain-Current: moderate Modifying Factors: Worsens With: palpation, vomiting Associated Symptoms: diarrhea, nausea, vomiting Previous symptoms: no prior history Allergies/Adverse Reactions: No Known Drug Allergies Allergy (Verified 12/08/21 12:41) Home Medications: Buspirone HCl 15 mg PO DAILY 12/08/21 [History] Desvenlafaxine Succinate [Pristiq ER] 25 mg PO DAILY 12/08/21 [History] lamoTRIgine [Lamictal] 25 mg PO UD 12/08/21 [History] Hx Tetanus, Diphtheria Vaccination/Date Given: Yes Hx Influenza Vaccination/Date Given: No Hx Pneumococcal Vaccination/Date Given: No Travel Risk - International Travel Have you traveled outside of the country in past 3 weeks: No - Coronavirus Screening Are you exhibiting any of the following symptoms?: Yes Symptoms: Vomiting/Diarrhea, Headaches/Body Aches/Fatigue - Vaccine Status Have you recieved a Covid-19 vaccination: Yes 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[place] - Vaccination Dates Date of 2cond Vaccination (if applicable): unknown - Review of Systems Constitutional: Fatigue, Weakness Eyes: No Symptoms Ears, Nose, & Throat: No Symptoms Respiratory: No Symptoms Cardiac: No Symptoms Abdominal/Gastrointestinal: Abdominal Pain, Nausea, Vomiting, Diarrhea Genitourinary Symptoms: No Symptoms Musculoskeletal: Myalgias Skin: No Symptoms Neurological: No Symptoms Psychological: No Symptoms Hematologic/Lymphatic: No Symptoms Immunological/Allergic: No Symptoms - Past Medical History Pertinent Past Medical History: Yes Neurological History: No Pertinent History ENT History: No Pertinent History Cardiac History: No Pertinent History Respiratory History: No Pertinent History Endocrine Medical History: No Pertinent History Musculoskeletal History: No Pertinent History GI Medical History: No Pertinent History History: No Pertinent History Psycho-Social History: Anxiety, Other Male Reproductive Disorders: No Pertinent History Other Medical History: seasonal allergies - Past Surgical History Past Surgical History: Yes Neuro Surgical History: No Pertinent History Cardiac: No Pertinent History Respiratory: No Pertinent History Gastrointestinal: No Pertinent History Genitourinary: No Pertinent History Musculoskeletal: Other Male Surgical History: No Pertinent History Other Surgical History: multiple left arm surgeries after break - Social History Smoking Status: Current some day smoker Exposure to second hand smoke: Yes Drug Use: marijuana Patient Lives Alone: No - Nursing Vital Signs Nursing Vital Signs: Initial Vital Signs Temperature 95.4 F 12/08/21 12:26 Pulse Rate 55 L 12/08/21 12:26 Blood Pressure 159/92 12/08/21 12:26 O2 Sat by Pulse Oximetry 98 12/08/21 12:26 Pain Scale Pain Intensity 4 - Physical Exam General Appearance: no apparent distress, alert Eye Exam: PERRL/EOMI Ears, Nose, Throat Exam: TMs normal, moist mucous membranes, pharyngeal erythema Neck Exam: normal inspection, non-tender, supple, full range of motion Respiratory Exam: normal breath sounds, lungs clear Cardiovascular Exam: regular rate/rhythm, normal heart sounds Gastrointestinal/Abdomen Exam: soft, normal bowel sounds, tenderness (Epigastrium/left upper and lower quadrant) Back Exam: normal inspection, normal range of motion, No CVA tenderness Extremity Exam: normal inspection, normal range of motion Neurologic Exam: alert, oriented x 3, cooperative Skin Exam: normal color SpO2 Interpretation: normal SpO2: 98 O2 Delivery: Room Air - Course EKG Interpreted by Me: RATE ([id number]), Sinus Jose Daniel, NORMAL AXIS, NORMAL INTERVALS Ordered Tests: Active Orders 24 hr Category Date Time Status IV Insertion STAT Care 12/08/21 12:39 Completed NPO (ED) STAT Care 12/08/21 12:39 Completed ABDOMEN AND PELVIS W/0 CONTRAS [CT] Stat Exams 12/08/21 12:39 Completed CBC W DIFF Stat Lab 12/08/21 12:39 Completed CMP Stat Lab 12/08/21 13:03 Completed LIPASE Stat Lab 12/08/21 13:03 Completed UA W/RFX CULTURE Stat Lab 12/08/21 13:00 Completed Medication Summary Discontinued Medications Generic Name Dose Route Start Last Admin Trade Name Dylan PRN Reason Stop Dose Admin Sodium Chloride 1,000 mls @ 999 mls/hr 12/08/21 12:39 12/08/21 13:51 Sodium Chloride 0.9% 1000 Ml IV 12/08/21 13:39 Infused .Q1H1M STA Infusion Sodium Chloride Confirm 12/08/21 12:47 Sodium Chloride 0.9% 1000 Ml Administered 12/08/21 12:48 Dose 1,000 mls @ ud .ROUTE .STK-MED ONE Sodium Chloride 1,000 mls @ 999 mls/hr 12/08/21 14:06 12/08/21 15:41 Sodium Chloride 0.9% 1000 Ml IV 12/08/21 15:06 Infused .Q1H1M STA Infusion Sodium Chloride Confirm 12/08/21 14:13 Sodium Chloride 0.9% 1000 Ml Administered 12/08/21 14:14 Dose 1,000 mls @ ud .ROUTE .STK-MED ONE Ketorolac Tromethamine 30 mg 12/08/21 12:39 12/08/21 12:49 Ketorolac Tromethamine 30 Mg/Ml Inj IV 12/08/21 12:40 30 mg STAT ONE Administration Ketorolac Tromethamine Confirm 12/08/21 12:47 Ketorolac Tromethamine 30 Mg/Ml Inj Administered 12/08/21 12:48 Dose 30 mg .ROUTE .STK-MED ONE Ondansetron HCl 4 mg 12/08/21 12:39 12/08/21 12:49 Ondansetron Hcl 4 Mg/2 Ml Vial IV 12/08/21 12:40 4 mg STAT ONE Administration Ondansetron HCl Confirm 12/08/21 12:47 Ondansetron Hcl 4 Mg/2 Ml Vial Administered 12/08/21 12:48 Dose 4 mg .ROUTE .STK-MED ONE Lab/Rad Data: Laboratory Result Diagrams 12/08/21 12:39 12/08/21 13:03 Laboratory Results 12/08/21 12/08/21 12/08/21 Range/Units 13:03 13:00 12:39 WBC 10.3 (4.0-10.5) x10^3/uL RBC 5.41 (4.1-5.6) x10^6/uL Hgb 16.2 (12.5-18.0) g/dL Hct 45.1 (42-50) % MCV 83.4 (78-100) fL MCH 29.9 (26-32) pg MCHC 35.9 (32-36) g/dL RDW 12.3 (11.5-14.0) % Plt Count 321 (150-450) x10^3/uL MPV 10.3 (7.5-11.0) fL Gran % 86.6 H (36.0-66.0) % Immature Gran % (Auto) 0.3 (0.00-0.4) % Nucleat RBC Rel Count 0.0 (0.00-0.1) % Eos # (Auto) 0.09 (0-0.5) x10^3/uL Immature Gran # (Auto) 0.03 (0.00-0.03) x10^3u/L Absolute Lymphs (auto) 0.74 L (1.0-4.6) x10^3/uL Absolute Monos (auto) 0.46 (0.0-1.3) x10^3/uL Absolute Nucleated RBC 0.00 (0.00-0.01) x10^3u/L Lymphocytes % 7.2 L (24.0-44.0) % Monocytes % 4.5 (0.0-12.0) % Eosinophils % 0.9 (0.00-5.0) % Basophils % 0.5 (0.0-0.4) % Absolute Granulocytes 8.96 H (1.4-6.9) x10^3/uL Basophils # 0.05 (0-0.4) x10^3/uL Sodium 138 (137-145) mmol/L Potassium 3.4 L (3.5-5.1) mmol/L Chloride 102 (98-107) mmol/L Carbon Dioxide 22 (22-30) mmol/L Anion Gap 17.9 H (5-15) MEQ/L BUN 10 (9-20) mg/dL Creatinine 0.66 (0.66-1.25) mg/dL Estimated GFR > 60.0 ML/MIN Glucose 139 H (74-106) mg/dL Calcium 10.2 (8.4-10.2) mg/dL Total Bilirubin 1.20 (0.2-1.3) mg/dL AST 42 (17-59) U/L ALT 61 H (0-50) U/L Alkaline Phosphatase 126 (38-126) U/L Serum Total Protein 8.3 H (6.3-8.2) g/dL Albumin 5.3 H (3.5-5.0) g/dL Lipase 39 (23-300) U/L Urinalys Dipstick Clnc MAIN LAB Urine Color DARK YELLOW (YELLOW) Urine Appearance SLIGHTLY CLOUDY (CLEAR) Urine pH >=9.0 (5-6) Ur Specific [place] 1.015 (1.005-1.025) POC Urine Protein Conf 100 (Negative) Urine Ketones MODERATE-40 (NEGATIVE) Urine Nitrite NEGATIVE (NEGATIVE) Urine Bilirubin SMALL (NEGATIVE) Urine Urobilinogen 1 (0-1) mg/dL Urine Leukocytes NEGATIVE (NEGATIVE) Urine WBC (Auto) NONE (0-5) /HPF Urine RBC (Auto) NONE (0-2) /HPF U Epithel Cells (Auto) NONE (FEW) /HPF Urine Bacteria (Auto) NONE (NEGATIVE) /HPF Urine RBC NEGATIVE (0-5) Jordan/ul Urine Mucus (Auto) SLIGHT (NEGATIVE) /HPF Ur Culture Indicated? NO Urine Glucose NEGATIVE (NEGATIVE) mg/dL - Progress Progress: improved, re-examined Progress Note: 12/08/21 15:33 26-year-old is evaluated for gastroenteritis symptoms. Given fluid boluses along with Zofran, on reevaluation feeling better. No peritoneal signs on repeated evaluation. Normal white count, chemistry profile consistent with dehydration. Probably viral gastroenteritis with supportive care recommended. Patient has a slow heart rate in low 40s, EKG shows sinus bradycardia with no ST elevations or depressions. Further discussion with patient and family revealed patient does have history of bradycardia and has been evaluated in the past with Dr. Mayers. Patient denies any chest pain palpitations, pounding of heart, dizziness or lightheadedness. Recommended outpatient follow-up with primary care and cardiology, increase hydration and return to ER for any worsening which patient/family seem understanding. Counseled pt/family regarding: lab results, diagnosis, need for follow-up, rad results - Departure Departure Disposition: Home Clinical Impression: Acute gastroenteritis, Dehydration, Bradycardia Condition: Stable Critical Care Time: No Referrals: MEREDITH SCHNEIDER NP [Primary Care Provider] - Follow Up with PCP/3 days AGUS MAYERS [ACTIVE STAFF] - Follow up/PCP as directed (Call early next week for reevaluation.) Instructions: Viral Gastroenteritis, Bradycardia (DC) Additional Instructions: Drink plenty of fluids to keep yourself well-hydrated. Follow-up with primary care for reevaluation. Also follow-up with primary professor of surgery for reevaluati on regarding slow heart rate. Return to ER for worsening gastroenteritis symptoms are if having palpitation, shortness of breath, pounding of heart etc. Prescriptions: Promethazine HCl 25 mg [Phenergan 25 mg] 25 mg PO Q8H PRN PRN #10 tablet PRN Reason: Nausea
[2021-12-08 13:10] LABS: Dipstick done @ ? MAIN LAB; Nitrite NEGATIVE (NEGATIVE); Ph >=9.0 (5-6); Protein,Urine Dip 100 (Negative); RBC NEGATIVE Ery/ul (0-5); Specific Gravity 1.015 (1.005-1.025); Urine Cultured Indicated? NO; Urobilinogen 1 mg/dL (0-1)
[2021-12-08 13:18] LABS: ALBUMIN 5.3 g/dL (3.5-5.0); ALKALINE PHOSPHATASE 126 U/L (38-126); ANION GAP 17.9 MEQ/L (5-15); BLOOD UREA NITROGEN 10 mg/dL (9-20); CHLORIDE 102 mmol/L (98-107); Calcium 10.2 mg/dL (8.4-10.2); Carbon Dioxide 22 mmol/L (22-30); Creatinine 1 0.66 mg/dL (0.66-1.25); EST GLOMERULAR FILTRATION RATE > 60.0 ML/MIN; Glucose 139 mg/dL (74-106); LIPASE 39 U/L (23-300); Potassium 3.4 mmol/L (3.5-5.1); SGOT/AST 42 U/L (17-59); SGPT/ALT 61 U/L (0-50); SODIUM 138 mmol/L (137-145); Total Protein 8.3 g/dL (6.3-8.2)
--- NOTE | 2021-12-08 14:03 | XRAY ---
Indication: Left abdomen pain, nausea, and vomiting. Multiple contiguous axial images obtained through the abdomen and pelvis without contrast. Comparison: None Lung bases clear of infiltrate and effusion. Heart not enlarged. Noncontrasted stomach and bowel loops appear nonobstructed with normal appendix. No free fluid/air. Remaining liver, gallbladder, pancreas, spleen, adrenal glands, kidneys, ureters, bladder, and aorta are unremarkable for noncontrast exam. Osseous structures intact. No ventral inguinal hernias. Incidental undescended right testicle seen in inguinal canal. Impression: Undescended right testicle. Remaining CT abdomen/pelvis without contrast exam is negative.
[2021-12-08 15:45] VITALS: BP 153/89; PULSE 46
[2021-12-08 20:42] VITALS: O2SAT 98
== END 2021-12-08 15:52 | disposition home or self-care (01) ==
LOC: ED 12:21
DX: K52.9 Noninfective gastroenteritis and colitis, unspecified (principal); E86.0 Dehydration; R00.1 Bradycardia, unspecified; R11.2 Nausea with vomiting, unspecified; R10.12 Left upper quadrant pain; R10.32 Left lower quadrant pain; R53.1 Weakness; M79.10 Myalgia, unspecified site; R53.83 Other fatigue; Z72.0 Tobacco use; Z79.899 Other long term (current) drug therapy
CPT/HCPCS: 36000; 36415; 74176; 80053; 81015; 83690; 85025; 96360; 96374; 96375; 99284; J1885; J2405

== ENCOUNTER 2022-01-09 05:55 | Day surgery (SDC) | payer BC ==
[2022-01-09] MEDS ORDERED: Lactated Ringers 1,000 ML IV SCH (06:30)
[2022-01-09] MEDS ORDERED: DIPRIVAN 200 MG/20 ML IV ONE (06:48)
[2022-01-09] MEDS ORDERED: Versed 2 MG/2 ML Injection ONE (06:48)
[2022-01-09] MEDS ORDERED: Xylocaine-Mpf 2% 5 Ml Vial ONE (07:01)
[2022-01-09 07:30] VITALS: BP 140/77; PULSE 65; O2SAT 98
--- NOTE | 2022-01-09 11:36 | OP ---
SURGERY DATE/TIME: 01/09/2022 0702 PREOPERATIVE DIAGNOSIS: Vomiting. POSTOPERATIVE DIAGNOSES: 1) Gastroparesis. 2) Mild gastritis. PROCEDURE: Esophagogastroduodenoscopy with cold forceps biopsy. SURGEON: Dr. Junior Sherwood. ANESTHESIA: Medications were given by the anesthesia department. BRIEF HISTORY: The patient is a 26-year-old white male patient who presents now after episode of weeks of vomiting and 25 pound weight loss. The patient reports that he improved recently. He is felt to need to have endoscopic evaluation. He was appraised of the risks of the procedure including the risk of perforation, phlebitis, untoward reaction to medication, bleeding and missed lesions. The patient verbalized his understanding and desired to have the procedure performed. DESCRIPTION OF PROCEDURE: The patient was given the medications by the anesthesia department. He had continuous pulse oximetry, ECG monitoring, intermittent blood pressure monitoring during the examination. He was placed in the left lateral decubitus position. A bite block was placed. The flexible Olympus gastroscope was used to intubate the oropharynx. The scope was easily introduced in the esophagus which appeared to be normal throughout its length. The stomach was entered. There appeared to be some food stuff remaining in the stomach which occupied approximately 25% of the stomach. The scope is passed along the greater curvature of the stomach to the antrum. The pylorus was encountered and intubated. The duodenum inspected and found to be normal. The scope is then redirected towards the gastric antrum. Biopsy obtained to rule out the presence of Helicobacter pylori-type organisms. The scope was removed from the patient who tolerated the procedure well and was sent back to outpatient recovery in good condition.
== END 2022-01-09 07:38 | disposition home or self-care (01) ==
LOC: SDC 05:55
PROVIDERS: ATTEND Family Medicine
DX: K31.84 Gastroparesis (principal); R11.11 Vomiting without nausea; K29.70 Gastritis, unspecified, without bleeding
CPT/HCPCS: 88305; 88312; J2250; J2704